=== PATIENT | male | born 1975 | race Caucasian/White ===

== ENCOUNTER → 2024-07-09 | Outpatient (CLI) | payer BC, SELFPAY ==
--- NOTE | 2024-07-09 | IMM_PTH ---
PATIENT: ELI PRUETT [facility] U#:[id number] AGE/SX: 48/M ROOM: RE07/09/[address]: Dr. Nate Soto MD : 1975 BED: DIS: 07/09/2024 SPEC #: [id number] RECD: 07/11/24 12:14 STATUS: YUDY REQ #: [id number] JL: 07/09/24 00:[address]: Nate Soto DEPT: IMMUNOHISTOCHEMISTRY RECD BY: Marcin Stock ENTERED: 07/11/24 12:15 SP TYPE: IMMUNO OTHR DR: Dr. Emery Young MD Tissues: D - PROSTATE LEFT Procedures: 34BE12 (add) P40 (initial) PHYSICIAN & INSTITUTION [place] [address] SPECIMEN INFORMATION: Tissue Source: D- Left apex Clinical Info: Elevated PSA Specimen Number: [id number] CPT code: 36071,24131 METHODOLOGY: Deparaffinized sections of prefer/formalin-fixed tissue or PAP/DQ stained slides are incubated with monoclonal/polyclonal antibodies/oligonucleotide probes. Localization is made via biotin free immunoperoxidase method. Appropriate controls are performed and reacted as expected. Results on target cell population are indicated in the following table: RESULTS: ANTIBODY / CLONE RESULT Block D P40 (BC28) negative 34BE12 (34BE12) negative These tests were developed and their performance characteristics determined by [facility]. They may not have been cleared or approved by the [place]. Food and Drug Administration. The FDA has determined that such clearance or approval is not necessary. The above immunohistochemical/dualISH markers are ordered and reviewed by the Pathologist. INTERPRETATION: Mason Prostate, left apex, core biopsy: Adenocarcinoma. 07/12/2024
--- NOTE | 2024-07-09 08:00 | PROSBIL_PTH ---
PATIENT: ELI PRUETT [facility] U[facility][id number] AGE/SX: 48/M ROOM: RE07/09/[address]: Dr. Nate Soto MD : 1975 BED: DIS: 07/09/2024 SPEC #: [id number] RECD: 07/10/24 10:04 STATUS: YUDY CECY #: [id number] JL: 07/09/24 08:[address]: Nate Soto DEPT: SURGICAL PATHOLOGY RECD BY: Deanna Post ENTERED: 07/10/24 10:05 SP TYPE: PROST BX STAR DR: Dr. Emery Young MD Tissues: A - PROSTATE RIGHT B - PROSTATE RIGHT C - PROSTATE RIGHT D - PROSTATE LEFT E - PROSTATE LEFT F - PROSTATE LEFT Procedures: PROSTATE BX HEADER OPERATION: Prostate biopsy PRE-OP DIAGNOSIS: Elevated PSA TISSUE SUBMITTED: A - Right apex, B - Right mid, C - Right base, D - Left apex, E - Left mid, F - Left base MICROSCOPIC DIAGNOSIS A. Right prostate, apex, core biopsy: Prostatic tissue, negative for malignancy. B. Right prostate, mid, core biopsy: Prostatic tissue, negative for malignancy. C. Right prostate, base, core biopsy: Prostatic tissue, negative for malignancy. D. Left prostate, apex, core biopsy: Prostatic adenocarcinoma. Charlton grade: 3+3=6 Number of cores involved: 1/2 Proportion of tissue involved: <5% Perineural invasion: Not identified. Greatest tumor length: 0.1 cm See comment. E. Left prostate, mid, core biopsy: Prostatic tissue, negative for malignancy. F. Left prostate, base, core biopsy: Prostatic tissue, negative for malignancy. 07/11/2024 COMMENT D. Immunohistochemistry ([id number]) supports the above diagnosis. Case has been reviewed in consultation with Dr. Mendoza who concurs with the above diagnosis. IDC:AM MICROSCOPIC DESCRIPTION Slides are reviewed. GROSS DESCRIPTION A - Received is one container designated prostate, right apex. The specimen consists of two elongated fragments of light payton-white soft tissue each measuring 1.0 cm in length and 0.1 cm in diameter. The specimen is totally submitted in one cassette. B - Received is one container designated prostate, right mid. The specimen consists of two elongated fragments of light payton-white soft tissue measuring 0.5 and 1.2 cm in length and 0.1 cm in diameter. The specimen is totally submitted in one cassette. C - Received is one container designated prostate, right base. The specimen consists of two elongated fragments of light payton-white soft tissue measuring 0.7 and 1.0 cm in length and 0.1 cm in diameter. The specimen is totally submitted in one cassette. D - Received is one container designated prostate, left apex. The specimen consists of two elongated fragments of light payton-white soft tissue each measuring 0.5 cm in length and 0.1 cm in diameter. The specimen is totally submitted in one cassette. E - Received is one container designated prostate, left mid. The specimen consists of two elongated fragments of light payton-white soft tissue measuring 0.9 and 1.3 cm in length and 0.1 cm in diameter. The specimen is totally submitted in one cassette. F - Received is one container designated prostate, left base. The specimen consists of two elongated fragments of light payton-white soft tissue measuring 1.0 and 1.2 cm in length and 0.1 cm in diameter. The specimen is totally submitted in one cassette. / SJ.mr 07/10/2024 TC:0 CPT: 42336 x6 ADDENDUM ADDENDUM ADDENDUM ADDENDUM ADDENDUM ADDENDUM ADDENDUM ADDENDUM ADDENDUM ADDENDUM ADDENDUM ADDENDUM ADDENDUM ADDENDUM ADDENDUM ADDENDUM ADDENDUM ADDENDUM ADDENDUM ADDENDUM ADDENDUM ADDENDUM ADDENDUM ADDENDUM ADDENDUM 08/22/2024 10:01 ADDENDUM 08/22/2024 10:01 ADDENDUM 08/22/2024 10:01 ADDENDUM 08/22/2024 10:01 ADDENDUM 08/22/2024 10:01 This addendum is added to incorporate an outside pathology consultation report. The case was examined at [facility] (#[id number]) and the following diagnosis was rendered. A. Right prostate, apex, core biopsy: Prostate tissue with no significant pathologic change. B. Right prostate, mid, core biopsy: Prostate tissue with no significant pathologic change. C. Right prostate, base, core biopsy: Prostate tissue with no significant pathologic change. D. Left prostate, apex, core biopsy: Prostatic adenocarcinoma. Miguel grade- 3+3=6 Involving ? cores and 3% of tissue. Immunohistochemical results: Positive AMACR; negative p63, CK5. E. Left prostate, mid, core biopsy: Prostate tissue with no significant pathologic change. F. Left prostate, base, core biopsy: Prostate tissue with no significant pathologic change. COMMENT: PSA 3.37 ng/mL on 10/31/2023 per the electronic medical record. Please see complete above mentioned consultation report in EMR
== END | disposition home or self-care (01) ==
LOC: LABSPEC 15:34
PROVIDERS: PCP Family Medicine; Referring Provider Urology; Visit Provider Urology
DX: C61 Malignant neoplasm of prostate (principal)
CPT/HCPCS: 88305; 88341; 88342; G0416